=== PATIENT | female | born 1955 | race Caucasian/White ===

== ENCOUNTER 2016-10-28 19:42 | Emergency (ER) | payer OTHER ==
[2016-10-28] MEDS ORDERED: Sodium Chloride 0.9% 10 ML Syringe FLUSH PRN ×2 (20:28→21:20)
[2016-10-28] MEDS ORDERED: Sodium Chloride 0.9% 1,000 ML IV ONE (20:28)
[2016-10-28] MEDS ORDERED: Ondansetron 4 MG/2 ML SDV IVPUSH ONE (20:28)
[2016-10-28] MEDS ORDERED: Morphine 4 MG/ML Syringe IVPUSH ONE (20:29)
--- NOTE | 2016-10-28 20:46 | EDM.PDOC ---
ED HPI GENERAL MEDICAL PROBLEM - General Chief Complaint: Abdominal Pain Stated Complaint: PAIN IN MIDDLE OF CHEST & WRAPS AROUND Time Seen by Provider: 10/28/16 20:30 Source of Information: Reports: Patient History Limitations: Reports: No Limitations - History of Present Illness INITIAL COMMENTS - FREE TEXT/NARRATIVE: Umm is a 61 year old female with a hx of HTN who presents to the ED today with c/o sudden onset mid epigastric pain that radiates to her right upper quadrant and around to her back. Patient reports that prior to the onset of her symptoms, she ate some meatballs, calico beans and occitan potato salad. Patient endorses nausea and two episodes of non-bloody emesis prior to arrival here. Patient denies any hematochezia or diarrhea. Patient does still have her gallbladder. She denies any radiating of pain into her chest. Patient arrives here cool, clammy and pale. Onset: Today, Sudden Duration: Hour(s): (4) Upper Abdominal Pain Score (Numeric/FACES): 10 - Related Data Allergies Allergy/AdvReac Type Severity Reaction Status Date / Time demerol Allergy Anaphylactic Uncoded 10/28/16 20:33 Shock Home Meds: Home Meds Cholecalciferol (Vitamin D3) [Vitamin D3] 1,000 unit PO DAILY 10/28/16 [History] Cinnamon Bark [Cinnamon] 500 mg PO DAILY 10/28/16 [History] Lisinopril 20 mg PO DAILY 10/28/16 [History] Multivitamin [Multi-Day Vitamins] 1 tab PO DAILY 10/28/16 [History] Ubidecarenone [COQ-10] 30 mg PO DAILY 10/28/16 [History] Past Medical History HEENT History: Reports: Hard of Hearing Cardiovascular History: Reports: Hypertension DENTURE [employer] History: Reports: Social & Family History - Tobacco Use Smoking Status *Q: Never Smoker - Caffeine Use Caffeine Use: Reports: Coffee - Recreational Drug Use Recreational Drug Use: No ED ROS GENERAL - Review of Systems Review Of Systems: ROS reveals no pertinent complaints other than HPI. ED EXAM, GI/ABD - Physical Exam Exam: See Below Exam Limited By: No Limitations General Appearance: Alert, Moderate Distress Throat/Mouth: Normal Inspection, No Airway Compromise Head: Atraumatic Neck: Normal Inspection, Supple, Non-Tender Respiratory/Chest: No Respiratory Distress, Lungs Clear, Normal Breath Sounds Cardiovascular: Normal Peripheral Pulses, Regular Rate, Rhythm, No Murmur GI/Abdominal Exam: Soft, Tender, Other (Mild mid-epigastric tenderness on exam, positive blackmon's sign with RUQ tenderness) (Female) Exam: Deferred Rectal (Female) Exam: Deferred Back Exam: Normal Inspection Extremities: Normal Inspection Neurological: Alert, Oriented, CN II-XII Intact Psychiatric: Anxious Skin Exam: Cool, Diaphoretic, Pallor Lymphatic: No Adenopathy EKG INTERPRETATION EKG Date: 10/28/16 Time: 20:41 Rhythm: NSR Rate (Beats/Min): 63 [place]: Normal P-Wave: Present QRS: Normal ST-T: Normal QT: Normal Comparison: NA - No Prior EKG Course - Vital Signs Last Recorded V/S: Last Vital Signs Temp 36.4 C 10/28/16 20:13 Pulse 62 10/28/16 22:21 Resp 16 10/28/16 22:21 BP 144/79 H 10/28/16 22:21 Pulse Ox 100 10/28/16 22:21 Umm is a 61 year old female who presents to the ED today with c/o sudden onset mid epigastric pain radiating to her RUQ. Patient reports sudden onset of pain after eating at 1600 this afternoon. Patient arrives here pale, clammy and diaphoretic, in moderate distress secondary to pain. Concerns for an acute cholecystits. EKG obtained to rule out cardiac etiology given her hx of HTN and being female, although unlikely, EKG is negative for any acute ischemic findings. Patient has positive Blackmon's sing on exam. PIV established. Patient given IV fluids, zofran and morphine. US of RUQ ordered, tech enroute Blood work is pending. 2049-CBC returns with normal white count and HGB. Neutrophils 85% 2114-US tech reports that patient's gallbladder is non-distended, non- thickened. One stone noted in GB. No bile duct dilatation, will obtain CT scan. CMP returns unremarkable except for elevated blood sugar of 187. Troponin is undetectable. Lipase is normal. CT scan is negative for any acute findings. Pain completely relieved with GI cocktail, likely GERD playing a role, maybe still gallbladder involvement, patient stable to be discharged home with reassuring blood work and imaging studies, will start 2 week trial of Prilosec. Follow up with PCP in one week. Return to the ED with any worsening symptoms. Avoid greasy, fatty foods. Patient and agreeable and she was discharged in stable condition. - Orders/Labs/Meds Orders: Active Orders 24 hr Category Date Time Status EKG Documentation Completion [RC] ASDIRECTED Care 10/28/16 20:16 Active Peripheral IV Care [RC] . DIRECTED Care 10/28/16 20:28 Active Abdomen Pelvis w Cont [CT] Stat Exams 10/28/16 21:08 Taken Gallbladder [Abdomen Ltd] [US] Stat Exams 10/28/16 20:29 Taken Iopamidol [Isovue-300 (61%)] Med 10/28/16 21:30 Active 117 ml IV . DIRECTED Sodium Chloride 0.9% [Saline Flush] Med 10/28/16 20:28 Active 10 ml FLUSH ASDIRECTED PRN Sodium Chloride 0.9% [Saline Flush] Med 10/28/16 21:20 Active 10 ml FLUSH ONETIME PRN Peripheral IV Insertion Adult [OM.PC] Routine Oth 10/28/16 20:28 Ordered EKG 12 Lead [EK] Stat Ther 10/28/16 20:15 Ordered Medication Orders Iopamidol (Isovue-300 (61%)) 117 ml IV . DIRECTED PRISCILLA Sodium Chloride (Saline Flush) 10 ml FLUSH ASDIRECTED PRN PRN Reason: Keep Vein Open Sodium Chloride (Saline Flush) 10 ml FLUSH ONETIME PRN PRN Reason: PER RADIOLOGY PROTOCOL Last Admin: 10/28/16 21:38 Dose: 10 ml Labs: Laboratory Tests 10/28/16 10/28/16 10/28/16 Range/Units 20:37 20:37 20:49 WBC 10.4 (4.5-11.0) K/uL RBC 4.90 (3.30-5.50) M/uL Hgb 13.4 (12.0-15.0) g/dL Hct 40.8 (36.0-48.0) % MCV 83 (80-98) fL MCH 27 (27-31) pg MCHC 33 (32-36) % Plt Count 199 (150-400) K/uL Neut % (Auto) 85 H (36-66) % Lymph % (Auto) 10 L (24-44) % [place] % (Auto) 4 (2-6) % Eos % (Auto) 0 L (2-4) % Baso % (Auto) 0 (0-1) % Sodium 142 (140-148) mmol/L Potassium 3.9 (3.6-5.2) mmol/L Chloride 104 (100-108) mmol/L Carbon Dioxide 29 (21-32) mmol/L Anion Gap 9.2 (5.0-14.0) mmol/L BUN 14 (7-18) mg/dL Creatinine 0.9 (0.6-1.0) mg/dL Est Cr Clr Drug Dosing 53.23 mL/min Estimated GFR (MDRD) > 60 (>60) Glucose 187 H (74-106) mg/dL Calcium 9.3 (8.5-10.1) mg/dL Total Bilirubin 0.3 (0.2-1.0) mg/dL AST 14 L (15-37) U/L ALT 25 (12-78) U/L Alkaline Phosphatase 70 (46-116) U/L Troponin I < 0.017 (0.000-0.056) ng/mL Total Protein 7.8 (6.4-8.2) g/dL Albumin 3.9 (3.4-5.0) g/dL Globulin 3.9 H (2.3-3.5) g/dL Albumin/Globulin Ratio 1.0 L (1.2-2.2) Lipase 129 (73-393) U/L Meds: Medications Generic Name Dose Route Start Last Admin Trade Name Freq PRN Reason Stop Dose Admin Iopamidol 117 ml 10/28/16 21:30 Isovue-300 (61%) IV . DIRECTED PRISCILLA Sodium Chloride 10 ml 10/28/16 20:28 Saline Flush FLUSH ASDIRECTED PRN Keep Vein Open Sodium Chloride 10 ml 10/28/16 21:20 10/28/16 21:38 Saline Flush FLUSH 10 ml ONETIME PRN Administration PER RADIOLOGY PROTOCOL Discontinued Medications Generic Name Dose Route Start Last Admin Trade Name Freq PRN Reason Stop Dose Admin Al Hydroxide/Mg Hydroxide 15 0 ml 10/28/16 21:10 10/28/16 22:13 ml/ Lidocaine HCl 15 ml PO 10/28/16 21:11 15 ml ONETIME ONE Administration Hydromorphone HCl 0.5 mg 10/28/16 21:10 10/28/16 21:26 Dilaudid IVPUSH 10/28/16 21:11 0.5 mg ONETIME ONE Administration Sodium Chloride 1,000 mls @ 999 mls/hr 10/28/16 20:28 10/28/16 20:44 Normal Saline IV 10/28/16 21:28 999 mls/hr .BOLUS ONE Administration Sodium Chloride 75 mls @ 3 mls/sec 10/28/16 21:20 10/28/16 21:38 Normal Saline IV 10/28/16 21:21 3 mls/sec ONETIME ONE Administration Ketorolac Tromethamine 30 mg 10/28/16 21:10 10/28/16 21:25 Toradol IVPUSH 10/28/16 21:11 30 mg ONETIME ONE Administration Morphine Sulfate 4 mg 10/28/16 20:29 10/28/16 20:46 Morphine IVPUSH 10/28/16 20:30 4 mg ONETIME ONE Administration Ondansetron HCl 4 mg 10/28/16 20:28 10/28/16 20:45 Zofran IVPUSH 10/28/16 20:29 4 mg ONETIME ONE Administration Departure - Departure Time of Disposition: 23:00 Disposition: Home, Self-Care 01 Condition: Good Clinical Impression: Abdominal pain Qualifiers: Abdominal location: right upper quadrant Qualified Code(s): R10.11 - Right upper quadrant pain GERD (gastroesophageal reflux disease) Qualifiers: Esophagitis presence: without esophagitis Qualified Code(s): K21.9 - Gastro- esophageal reflux disease without esophagitis - Discharge Information Instructions: Abdominal Pain, Adult, [id number], Heartburn, [id number] Forms: ED Department Discharge Additional Instructions: Umm, I have prescribed you Prilosec, this is for heartburn, you need to take this once daily for it to be effective. I want you to try this for the next 2 weeks. Please follow up with your primary care doctor in one week. Return here with any worsening symptoms. Your gallbladder may still be playing a role, try to avoid any greasy, fatty foods for the next few days. Take care and I am glad you are feeling better. - My Orders Last 24 Hours: My Active Orders 10/28/16 20:15 EKG 12 Lead [EK] Stat 10/28/16 20:16 EKG Documentation Completion [RC] ASDIRECTED 10/28/16 20:28 Peripheral IV Care [RC] . DIRECTED Sodium Chloride 0.9% [Saline Flush] 10 ml FLUSH ASDIRECTED PRN Peripheral IV Insertion Adult [OM.PC] Routine 10/28/16 20:29 Gallbladder [Abdomen Ltd] [US] Stat 10/28/16 21:08 Abdomen Pelvis w Cont [CT] Stat 10/28/16 21:20 Sodium Chloride 0.9% [Saline Flush] 10 ml FLUSH ONETIME PRN 10/28/16 21:30 Iopamidol [Isovue-300 (61%)] 117 ml IV . DIRECTED - Assessment/Plan Last 24 Hours: My Active Orders 10/28/16 20:15 EKG 12 Lead [EK] Stat 10/28/16 20:16 EKG Documentation Completion [RC] ASDIRECTED 10/28/16 20:28 Peripheral IV Care [RC] . DIRECTED Sodium Chloride 0.9% [Saline Flush] 10 ml FLUSH ASDIRECTED PRN Peripheral IV Insertion Adult [OM.PC] Routine 10/28/16 20:29 Gallbladder [Abdomen Ltd] [US] Stat 10/28/16 21:08 Abdomen Pelvis w Cont [CT] Stat 10/28/16 21:20 Sodium Chloride 0.9% [Saline Flush] 10 ml FLUSH ONETIME PRN 10/28/16 21:30 Iopamidol [Isovue-300 (61%)] 117 ml IV . DIRECTED
[2016-10-28] MEDS ORDERED: Ketorolac 30 MG/ML SDV IVPUSH ONE (21:10)
[2016-10-28] MEDS ORDERED: Alum Hydrox/Mag Hydrox/Simeth 15 ML, Lidocaine 2% 15 ML PO ONE ×2 (21:10)
[2016-10-28] MEDS ORDERED: HYDROmorphone 0.5 MG/0.5 ML Syringe IVPUSH ONE (21:10)
[2016-10-28] MEDS ORDERED: Sodium Chloride 0.9% 75 ML IV ONE (21:20)
[2016-10-28] MEDS ORDERED: Iopamidol 612 MG/ML 150 ML Bottle IV SCH (21:30)
[2016-10-28 22:22] VITALS: BP 144/79
== END 2016-10-28 22:43 | disposition home or self-care (01) ==
LOC: JP.ED 19:42
DX: K21.9 Gastro-esophageal reflux disease without esophagitis (principal); I10 Essential (primary) hypertension; Z79.899 Other long term (current) drug therapy; Z88.5 Allergy status to narcotic agent
CPT/HCPCS: 36415; 74177; 76705; 80053; 83690; 84484; 85025; 93005; 96361; 96374; 96375; 99285; A9270; J1170; J1885; J2270; J2405; J7030; J7040; J7050